=== PATIENT | female | born 1940 | race Caucasian/White ===

== ENCOUNTER 2018-04-21 10:47 | Inpatient (IN) ==
--- NOTE | 2018-04-21 13:16 | ED ---
HPI General Chief Complaint: Psychiatric Symptoms Stated Complaint: Alverto henry Time Seen by Provider: 04/21/18 12:55 Source: patient and family (sister) Mode of arrival: ambulatory Limitations: no limitations History of Present Illness HPI Narrative: 77-year-old female, with history of bipolar disorder, presents voluntarily to the emergency department for psychiatric evaluation. She says that she has not been able to sleep for the past month and is manic. Reports about 3 hours of sleep per night, but it is not enough. She says she has no energy. Also reports some visual hallucinations occasionally. Her sister states she has been irritable and has been pacing a lot. Patient reports feeling depressed and anxious. Denies suicidal or homicidal ideations. Denies auditory hallucinations. Has tried taking sleeping pills with no relief of symptoms. She does take lithium and her dose was decreased in December secondary to an increased lithium level. She has not had her lithium level rechecked since then. Says she is due for lithium level rechecked. No known aggravating or relieving factors. Symptoms are moderate in severity. Onset unknown. Duration chronic. Psychiatrist is Camille Winchester. Primary care provider is Dr. Salazar. Allergies to penicillin and sulfa. History of bipolar disorder and hypertension. Has no other medical complaints. Denies chest pain, shortness of breath, abdominal pain, change in urine or stool. Does have a stent in her bladder and says that sometimes it is painful. No other modifying factors or associated signs and symptoms. Related Data Home Medications Medication Instructions Recorded Confirmed levothyroxine 50 mcg PO DAILY 04/21/18 04/21/18 lithium carbonate 300 mg PO BID 04/21/18 04/21/18 simvastatin 20 mg PO DAILY 04/21/18 04/21/18 Allergies Allergy/AdvReac Type Severity Reaction Status Date / Time Penicillins Allergy Rash Verified 04/21/18 13:21 Sulfa (Sulfonamide AdvReac Gastrointestinal Verified 04/21/18 13:21 Antibiotics) Upset Review of Systems ROS: all other systems reviewed are negative [facility] Medical History Medical History Bipolar disorder (Acute) HTN (hypertension) (Acute) Hx of hysterectomy (Acute) Hyperlipemia (Acute) Neurogenic bladder (Acute) Thyroid disorder (Acute) Family History Family History Other Family history normal Social History Social History Substance History: No History of Abuse Smoking Status: Refused to answer How Often Do You Have a Drink Containing Alcohol: Never Recent Travel in [facility] within the Last 8 Weeks: No Recent Out of Country Travel within the Last 8 Weeks: No Exam Narrative Exam Narrative: GENERAL: Well-nourished, well-developed elderly, female patient, in no acute distress SKIN: Warm and dry. HEAD: Atraumatic. Normocephalic. EYES: Pupils equal and round. ENT: Mucosa pink and moist. NECK: Supple. Trachea midline. CARDIOVASCULAR: Regular rate and rhythm. No murmur appreciated. RESPIRATORY: No accessory muscle use. Clear to auscultation. Breath sounds equal bilaterally. GASTROINTESTINAL: Abdomen soft, non-tender, nondistended. Hepatic and splenic margins not palpable. Bowel sounds are active 4 quadrants. MUSCULOSKELETAL: No obvious deformities. No clubbing. No cyanosis. No edema. BACK: No CVA tenderness. NEUROLOGICAL: Awake and alert. Oriented 3. No obvious cranial nerve deficits. Motor grossly within normal limits. Normal speech. Moves all extremities. 5/5 strength to all extremities. PSYCHIATRIC: No delusional thought processes. No hallucinations. Course Initial Documented Vital Signs Temperature 98.2 F 04/21/18 11:43 Pulse Rate 77 04/21/18 11:43 Respiratory Rate 16 04/21/18 11:43 Blood Pressure 138/77 04/21/18 11:43 Pulse Oximetry 97 04/21/18 11:43 Last Documented Vital Signs Temperature 97.2 F L 04/22/18 17:34 Pulse Rate 80 04/22/18 17:34 Respiratory Rate 16 04/22/18 17:34 Blood Pressure 167/86 H 04/22/18 17:34 Pulse Oximetry 95 04/22/18 17:34 Medical Decision Making [facility] Narrative Medical decision making narrative: Patient presents voluntarily for psychiatric evaluation. Physical examination and vital signs are essentially unremarkable. Patient has no medical complaints to report. Psych screen has been ordered. If the laboratory results are unremarkable, the patient will be medically cleared for psychiatric evaluation and disposition. Medical Screen Exam Complete: Yes Emergency Medical Condition: Yes Differential Diagnosis Differential Diagnosis: Bipolar disorder, insomnia, anxiety, depression, medical clearance for psychiatric evaluation Lab Data Result diagrams: 04/21/18 13:46 04/21/18 13:46 Lab Results 04/21/18 04/21/18 04/21/18 Range/Units 13:46 13:46 13:48 WBC 10.4 (4.0-11.0) th/mm3 RBC 4.67 (4.00-5.30) mil/mm3 Hgb 14.3 (11.6-15.3) gm/dL Hct 43.4 (35.0-46.0) % MCV 92.8 (80.0-100.0) fL MCH 30.6 (27.0-34.0) pg MCHC 33.0 (32.0-36.0) % RDW 13.3 (11.6-17.2) % Plt Count 225 (150-450) th/mm3 MPV 7.9 (7.0-11.0) fL Neut % (Auto) 84.5 H (16.0-70.0) % Lymph % (Auto) 10.8 (9.0-44.0) % [place] % (Auto) 4.0 (0.0-8.0) % Eos % (Auto) 0.0 (0.0-4.0) % Baso % (Auto) 0.7 (0.0-2.0) % Neut # (Auto) 8.8 H (1.8-7.7) th/mm3 Lymph # (Auto) 1.1 (1.0-4.8) th/mm3 [place] # (Auto) 0.4 (0.0-0.9) th/mm3 Eos # (Auto) 0.0 (0.0-0.4) th/mm3 Baso # (Auto) 0.1 (0.0-0.2) th/mm3 WBC Differential . Differential Comment Auto diff final Sodium 141 (136-145) meq/L Potassium 4.8 (3.5-5.1) meq/L Chloride 110 H (98-107) meq/L Carbon Dioxide 24.9 (21.0-32.0) meq/L Anion Gap 6 (5-15) meq/L BUN 21 H (7-18) mg/dL Creatinine 0.97 (0.50-1.00) mg/dL Estimated GFR 56 L (>89) mL/min Random Glucose 123 H (74-106) mg/dL Hemoglobin A1c (4.3-6.0) % Calcium 9.7 (8.5-10.1) mg/dL Total Bilirubin 0.8 (0.2-1.0) mg/dL AST 38 H (15-37) U/L ALT 26 (10-53) U/L Alkaline Phosphatase 68 (45-117) U/L Total Protein 7.6 (6.4-8.2) g/dL Albumin 4.1 (3.4-5.0) g/dL Triglycerides (42-150) mg/dL Cholesterol (120-200) mg/dL LDL Cholesterol, Calc (0-99) mg/dL HDL Cholesterol (40.0-60.0) mg/dL Cholesterol/HDL Ratio Ratio TSH 1.710 (0.358-3.740) uIU/mL Urine Color (Yellw/Straw) Urine Clarity (Clear) Urine pH (5.0-8.5) Ur Specific [place] (1.002-1.035) Urine Protein (Neg-Trace) mg/dL Urine Glucose (UA) (Negative) mg/dL Urine Ketones (Negative) mg/dL Urine Occult Blood (Negative) Urine Nitrate (Negative) Urine Bilirubin (Negative) Urine Urobilinogen (Less than 2) mg/dL Ur Leukocyte Esterase (Negative) Urine RBC (0-3) /hpf Urine WBC (0-5) /hpf Ur Squamous Epith Cells (0-5) /hpf Urine Mucus (Occasional) /lpf Micro UA Comment Ur Microscopic Review Urine Culture Comments Urine Opiates Screen Neg (Neg) Ur Barbiturates Screen Neg (Neg) Ur Amphetamines Screen Neg (Neg) U Benzodiazepines Scrn Neg (Neg) [place] (0.5-1.5) meq/L Urine Cocaine Screen Neg (Neg) U Cannabinoids Screen Neg (Neg) Serum Alcohol Less than 3 (0-5) mg/dL 04/21/18 04/21/18 04/22/18 Range/Units 13:48 14:59 06:31 WBC (4.0-11.0) th/mm3 RBC (4.00-5.30) mil/mm3 Hgb (11.6-15.3) gm/dL Hct (35.0-46.0) % MCV (80.0-100.0) fL MCH (27.0-34.0) pg MCHC (32.0-36.0) % RDW (11.6-17.2) % Plt Count (150-450) th/mm3 MPV (7.0-11.0) fL Neut % (Auto) (16.0-70.0) % Lymph % (Auto) (9.0-44.0) % [place] % (Auto) (0.0-8.0) % Eos % (Auto) (0.0-4.0) % Baso % (Auto) (0.0-2.0) % Neut # (Auto) (1.8-7.7) th/mm3 Lymph # (Auto) (1.0-4.8) th/mm3 [place] # (Auto) (0.0-0.9) th/mm3 Eos # (Auto) (0.0-0.4) th/mm3 Baso # (Auto) (0.0-0.2) th/mm3 WBC Differential Differential Comment Sodium (136-145) meq/L Potassium (3.5-5.1) meq/L Chloride (98-107) meq/L Carbon Dioxide (21.0-32.0) meq/L Anion Gap (5-15) meq/L BUN (7-18) mg/dL Creatinine (0.50-1.00) mg/dL Estimated GFR (>89) mL/min Random Glucose (74-106) mg/dL Hemoglobin A1c 5.6 (4.3-6.0) % Calcium (8.5-10.1) mg/dL Total Bilirubin (0.2-1.0) mg/dL AST (15-37) U/L ALT (10-53) U/L Alkaline Phosphatase (45-117) U/L Total Protein (6.4-8.2) g/dL Albumin (3.4-5.0) g/dL Triglycerides (42-150) mg/dL Cholesterol (120-200) mg/dL LDL Cholesterol, Calc (0-99) mg/dL HDL Cholesterol (40.0-60.0) mg/dL Cholesterol/HDL Ratio Ratio TSH (0.358-3.740) uIU/mL Urine Color Yellow (Yellw/Straw) Urine Clarity Clear (Clear) Urine pH 6.0 (5.0-8.5) Ur Specific [place] 1.009 (1.002-1.035) Urine Protein Negative (Neg-Trace) mg/dL Urine Glucose (UA) Negative (Negative) mg/dL Urine Ketones Negative (Negative) mg/dL Urine Occult Blood Negative (Negative) Urine Nitrate Negative (Negative) Urine Bilirubin Negative (Negative) Urine Urobilinogen Less than 2 (Less than 2) mg/dL Ur Leukocyte Esterase Negative (Negative) Urine RBC 1 (0-3) /hpf Urine WBC 1 (0-5) /hpf Ur Squamous Epith Cells <1 (0-5) /hpf Urine Mucus Few H (Occasional) /lpf Micro UA Comment Culture not ind Ur Microscopic Review Not Reportable Urine Culture Comments Culture not ind Urine Opiates Screen (Neg) Ur Barbiturates Screen (Neg) Ur Amphetamines Screen (Neg) U Benzodiazepines Scrn (Neg) [place] 0.8 (0.5-1.5) meq/L Urine Cocaine Screen (Neg) U Cannabinoids Screen (Neg) Serum Alcohol (0-5) mg/dL 04/22/18 Range/Units 06:31 WBC (4.0-11.0) th/mm3 RBC (4.00-5.30) mil/mm3 Hgb (11.6-15.3) gm/dL Hct (35.0-46.0) % MCV (80.0-100.0) fL MCH (27.0-34.0) pg MCHC (32.0-36.0) % RDW (11.6-17.2) % Plt Count (150-450) th/mm3 MPV (7.0-11.0) fL Neut % (Auto) (16.0-70.0) % Lymph % (Auto) (9.0-44.0) % [place] % (Auto) (0.0-8.0) % Eos % (Auto) (0.0-4.0) % Baso % (Auto) (0.0-2.0) % Neut # (Auto) (1.8-7.7) th/mm3 Lymph # (Auto) (1.0-4.8) th/mm3 [place] # (Auto) (0.0-0.9) th/mm3 Eos # (Auto) (0.0-0.4) th/mm3 Baso # (Auto) (0.0-0.2) th/mm3 WBC Differential Differential Comment Sodium (136-145) meq/L Potassium (3.5-5.1) meq/L Chloride (98-107) meq/L Carbon Dioxide (21.0-32.0) meq/L Anion Gap (5-15) meq/L BUN (7-18) mg/dL Creatinine (0.50-1.00) mg/dL Estimated GFR (>89) mL/min Random Glucose (74-106) mg/dL Hemoglobin A1c (4.3-6.0) % Calcium (8.5-10.1) mg/dL Total Bilirubin (0.2-1.0) mg/dL AST (15-37) U/L ALT (10-53) U/L Alkaline Phosphatase (45-117) U/L Total Protein (6.4-8.2) g/dL Albumin (3.4-5.0) g/dL Triglycerides 89 (42-150) mg/dL Cholesterol 125 (120-200) mg/dL LDL Cholesterol, Calc 59 (0-99) mg/dL HDL Cholesterol 48.1 (40.0-60.0) mg/dL Cholesterol/HDL Ratio 2.59 Ratio TSH (0.358-3.740) uIU/mL Urine Color (Yellw/Straw) Urine Clarity (Clear) Urine pH (5.0-8.5) Ur Specific [place] (1.002-1.035) Urine Protein (Neg-Trace) mg/dL Urine Glucose (UA) (Negative) mg/dL Urine Ketones (Negative) mg/dL Urine Occult Blood (Negative) Urine Nitrate (Negative) Urine Bilirubin (Negative) Urine Urobilinogen (Less than 2) mg/dL Ur Leukocyte Esterase (Negative) Urine RBC (0-3) /hpf Urine WBC (0-5) /hpf Ur Squamous Epith Cells (0-5) /hpf Urine Mucus (Occasional) /lpf Micro UA Comment Ur Microscopic Review Urine Culture Comments Urine Opiates Screen (Neg) Ur Barbiturates Screen (Neg) Ur Amphetamines Screen (Neg) U Benzodiazepines Scrn (Neg) [place] (0.5-1.5) meq/L Urine Cocaine Screen (Neg) U Cannabinoids Screen (Neg) Serum Alcohol (0-5) mg/dL Discharge Plan Discharge Disposition Patient Disposition: 30 Still Patient Discharge Condition Condition: Stable Discharge Details Diagnosis: Encounter for psychiatric assessment Physicians Team ED Provider: Shalini Hill ED Midlevel Provider: Lana Kruger Primary Care Provider: Primary Care Physici,No Attending Provider: Bj Bowers Other Providers: Kinsey Ziegler Status ED Status: Left Department Discharge Information Discharge Date/Time: 04/21/18 18:36
[2018-04-21 14:03] LABS: Baso # (Auto) 0.1 th/mm3 (0.0-0.2); Baso % (Auto) 0.7 % (0.0-2.0); Hematocrit 43.4 % (35.0-46.0); Hemoglobin 14.3 gm/dL (11.6-15.3); Lymph # (Auto) 1.1 th/mm3 (1.0-4.8); Lymph % (Auto) 10.8 % (9.0-44.0); Mean Corpuscular Hemoglobin 30.6 pg (27.0-34.0); Mean Corpuscular Volume 92.8 fL (80.0-100.0); Mean Platelet Volume 7.9 fL (7.0-11.0); Mono # (Auto) 0.4 th/mm3 (0.0-0.9); Neut # (Auto) 8.8 th/mm3 (1.8-7.7); Neut % (Auto) 84.5 % (16.0-70.0); Platelet Count 225 th/mm3 (150-450); Red Blood Count 4.67 mil/mm3 (4.00-5.30); Red Cell Distribution Width 13.3 % (11.6-17.2); White Blood Count 10.4 th/mm3 (4.0-11.0)
[2018-04-21 14:14] LABS: Bilirubin,Urine Negative (Negative); Clarity,Urine Clear (Clear); Color,Urine Yellow (Yellw/Straw); Glucose,Urine (UA) Negative (Negative); Leukocyte Esterase,Urine Negative (Negative); Mucus,Urine Few /lpf (Occasional); Nitrite,Urine Negative (Negative); Specific Gravity,Urine 1.009 (1.002-1.035); Squamous Epithelial Cell,Urine <1 /hpf (0-5)
[2018-04-21 14:18] LABS: Amphetamine Screen,Urine Neg (Neg); Barbiturate Screen,Urine Neg (Neg); Cannabinoid Screen,Urine Neg (Neg); Cocaine Screen,Urine Neg (Neg)
[2018-04-21 14:21] LABS: Opiate Screen,Urine Neg (Neg)
[2018-04-21 14:26] LABS: Albumin 4.1 g/dL (3.4-5.0); Anion Gap 6 meq/L (5-15); Aspartate Aminotransferase 38 U/L (15-37); Blood Urea Nitrogen 21 mg/dL (7-18); Calcium 9.7 mg/dL (8.5-10.1); Carbon Dioxide 24.9 meq/L (21.0-32.0); Chloride 110 meq/L (98-107); Glomerular Filtration Rate 56 mL/min (>89); Glucose,Random 123 mg/dL (74-106); Potassium 4.8 meq/L (3.5-5.1); Sodium 141 meq/L (136-145)
[2018-04-21 14:36] LABS: Alanine Aminotransferase 26 U/L (10-53); Alkaline Phosphatase 68 U/L (45-117); Total Protein 7.6 g/dL (6.4-8.2)
[2018-04-21] MEDS ORDERED: Acetaminophen 325 MG Tablet PO ONE (17:04)
[2018-04-21] MEDS ORDERED: Aluminum/Magnesium/Simethacone Susp 30 ML UDC PO PRN (19:11)
[2018-04-22 08:13] LABS: Chol/HDL Ratio 2.59 Ratio; HDL Cholesterol 48.1 mg/dL (40.0-60.0)
[2018-04-22] MEDS ORDERED: Senna/Docusate Sodium 8.6/50 MG Tablet PO PRN (08:15)
[2018-04-22] MEDS: Polyethylene Glycol 3350 17 GM Packet PO SCH (08:31)
[2018-04-22] MEDS: Acetaminophen 325 MG Tablet PO PRN ×2 (12:08→16:25)
[2018-04-22 12:27] LABS: Hemoglobin A1c 5.6 % (4.3-6.0)
--- NOTE | 2018-04-22 13:02 | P.HPPSY ---
Provisional Diagnosis Admission Date: April 21, 2018 18:10 Competence Certification of Person's Competence To Provide Express and Informed Consent I have personally examined Cheryl Parikh, a person being served at [facility] on, April 22, 2018 1250. Express and informed consent means consent voluntarily given in writing, by a competent person, after sufficient explanation and disclosure of the subject matter involved to enable the person to make a knowing and willful decision without any element of force, fraud, deceit, duress, or other form of constraint or coercion. This person is 18 years of age or older, is not now known to be incompetent to consent to treatment with a guardian advocate, and does not have a health care surrogate or proxy currently making medical treatment decisions. I have found this person to be one of the following: [] Competent to provide express and informed consent, as defined above, for voluntary admission to this facility and is competent to provide express and informed consent for treatment. He/she has the consistent capacity to make well reasoned, willful, and knowing decisions concerning his or her medical or mental health treatment. The person fully and consistently understands the purpose of the admission for examination/placement and is fully capable of personally exercising all rights assured [place] [] Incompetent to provide express and informed consent to voluntary admission, and this is incompetent to provide express and informed consent to treatment. The person must be transferred to involuntary status and a petition for a guardian advocate filed with the Circuit Court. [X] Refusing to provide express and informed consent to voluntary admission but is competent to provide express and informed consent for treatment. The person must be discharged or transferred to involuntary status. Form shall be completed within 24 hours of a person's arrival at the receiving facility and filed in the clinical record of each person: 1. Admitted on a voluntary basis 2. Permitted to provide express and informed consent to his/her own treatment 3. Allowed to transfer from involuntary to voluntary status 4. Prior to permitting a person to consent to his or her own treatment after having been previously found incompetent to consent to treatment. History of Present Illness Capacity: Has capacity Chief Complaint: "bipolar" History of Present Illness: Patient is a 77-year-old female with an extensive history of bipolar disorder. Patient is admitted to the psychiatric unit for what she believes is symptoms of елена. This summer her lithium level was elevated at 1.4 and her outpatient psychiatrist lowered it to 600 mg from 900 mg. Since then, patient says she has had insomnia. However, she denies excess energy or goal directed activity. There is no euphoria or irritability however, there is pressured speech, trouble concentrating and mild confusion with pronounced anxiety. Tony level was done here in admission and is at 0.9. She was started before this interview on 300 mg p.o. twice daily. Patient says she was started on antihypertensive recently. However, she says this was after her insomnia and other symptoms began. She denies suicidal or homicidal ideation intent or plan. No psychosis noted. Past psych: Patient has failed trazodone and Seroquel in the past. She has been on lithium for over 20 years. She is unsure she is had other admissions Past medical: Thyroid disorder, high cholesterol, hypertension Past Social: Patient is a , Alevism, she denies any alcohol or substance use. She is retired - Inpatient Certification I certify that the inpatient services were ordered in accordance with Medicare regulations governing the order. This includes certification that hospital inpatient services are reasonable and necessary and in the case of services not specified as inpatient-only under 42 CFR 419.22(n), that they are appropriately provided as inpatient services in accordance to with the 2-midnight benchmark under 43 CFR 412.3(e) I certify that inpatient psychiatric hospital services are medically necessary. Evaluation and treatment and/or diagnostic testing are expected to improve the patient's condition. The patient needs on a daily basis, active treatment furnished directly by or requiring the supervision of inpatient psychiatric facility personnel. Review of Systems All other systems reviewed negative except as stated in HPI PMFSH - History History Provided By: Patient, Medical Record - Medical History Medical History: Medical History (Last Updated 04/22/18 @ 12:59 by Carl Can DO) HTN (hypertension) Thyroid disorder - Social History I have reviewed the patient's Social History: Yes - Tobacco History Second Hand Smoke Exposure: No Smoking Status: Refused to answer - Alcohol History How Often Do You Have a Drink Containing Alcohol: Unable to Obtain - Substance Use History Substance History: No History of Abuse - Travel History Recent Travel in the [place] Within the Last 8 Weeks: No Recent Travel Out of the Country Within the Last 8 Weeks: No - Immunization History Tetanus Immunization: Unsure Medications and Allergies Active Medications: Active Medications Acetaminophen (Tylenol) 650 mg PO Q4H PRN PRN Reason: Pain 1-5 or Temp >101F Last Admin: 04/22/18 12:08 Dose: 650 mg Al Hydrox/Mg Hydrox/Simethicone (Mag-Al Plus Susp Liq) 30 ml PO Q6H PRN PRN Reason: DYSPEPSIA Al Hydroxide/Mg Hydroxide (Milk Of Magnesia Liq) 30 ml PO Q12H PRN PRN Reason: Mild Constipation Diphenhydramine HCl (Benadryl) 50 mg PO Q6H PRN PRN Reason: For mild anxiety and/or EPS Diphenhydramine HCl (Benadryl Inj) 50 mg IM Q6H PRN PRN Reason: For mild anxiety and/or EPS Hydroxyzine HCl (Atarax) 50 mg PO Q6H PRN PRN Reason: ANXIETY Tony Carbonate (Tony Carbonate) 300 mg PO BID [facility] Last Admin: 04/22/18 08:31 Dose: 300 mg Mirtazapine (Remeron) 15 mg PO [facility] Polyethylene Glycol (Miralax) 17 gm PO DAILY [facility] Last Admin: 04/22/18 08:31 Dose: 17 gm Senna/Docusate Sodium (Anisa-Colace) 1 tab PO DAILY PRN PRN Reason: CONSTIPATION Allergies Allergy/AdvReac Type Severity Reaction Status Date / Time Penicillins Allergy Rash Verified 04/21/18 13:21 Sulfa (Sulfonamide AdvReac Gastrointestinal Verified 04/21/18 13:21 Antibiotics) Upset Home Medications Medication Instructions Recorded Confirmed Type levothyroxine 50 mcg PO DAILY 04/21/18 04/21/18 History lithium carbonate 300 mg PO BID 04/21/18 04/21/18 History simvastatin 20 mg PO DAILY 04/21/18 04/21/18 History Results - Labs CBC & Chem 7: 04/21/18 13:46 04/21/18 13:46 Labs: Laboratory Results - last 24 hr 04/21/18 04/21/18 04/21/18 13:46 13:46 13:48 WBC 10.4 RBC 4.67 Hgb 14.3 Hct 43.4 MCV 92.8 MCH 30.6 MCHC 33.0 RDW 13.3 Plt Count 225 MPV 7.9 Neut % (Auto) 84.5 H Lymph % (Auto) 10.8 [place] % (Auto) 4.0 Eos % (Auto) 0.0 Baso % (Auto) 0.7 Neut # (Auto) 8.8 H Lymph # (Auto) 1.1 [place] # (Auto) 0.4 Eos # (Auto) 0.0 Baso # (Auto) 0.1 WBC Differential . Differential Comment Auto diff final Sodium 141 Potassium 4.8 Chloride 110 H Carbon Dioxide 24.9 Anion Gap 6 BUN 21 H Creatinine 0.97 Estimated GFR 56 L Random Glucose 123 H Calcium 9.7 Total Bilirubin 0.8 AST 38 H ALT 26 Alkaline Phosphatase 68 Total Protein 7.6 Albumin 4.1 Triglycerides Cholesterol LDL Cholesterol, Calc HDL Cholesterol Cholesterol/HDL Ratio TSH 1.710 Urine Color Urine Clarity Urine pH Ur Specific [place] Urine Protein Urine Glucose (UA) Urine Ketones Urine Occult Blood Urine Nitrate Urine Bilirubin Urine Urobilinogen Ur Leukocyte Esterase Urine RBC Urine WBC Ur Squamous Epith Cells Urine Mucus Micro UA Comment Ur Microscopic Review Urine Culture Comments Urine Opiates Screen Neg Ur Barbiturates Screen Neg Ur Amphetamines Screen Neg U Benzodiazepines Scrn Neg [place] Urine Cocaine Screen Neg U Cannabinoids Screen Neg Serum Alcohol Less than 3 04/21/18 04/21/18 04/22/18 13:48 14:59 06:31 WBC RBC Hgb Hct MCV MCH MCHC RDW Plt Count MPV Neut % (Auto) Lymph % (Auto) [place] % (Auto) Eos % (Auto) Baso % (Auto) Neut # (Auto) Lymph # (Auto) [place] # (Auto) Eos # (Auto) Baso # (Auto) WBC Differential Differential Comment Sodium Potassium Chloride Carbon Dioxide Anion Gap BUN Creatinine Estimated GFR Random Glucose Calcium Total Bilirubin AST ALT Alkaline Phosphatase Total Protein Albumin Triglycerides 89 Cholesterol 125 LDL Cholesterol, Calc 59 HDL Cholesterol 48.1 Cholesterol/HDL Ratio 2.59 TSH Urine Color Yellow Urine Clarity Clear Urine pH 6.0 Ur Specific [place] 1.009 Urine Protein Negative Urine Glucose (UA) Negative Urine Ketones Negative Urine Occult Blood Negative Urine Nitrate Negative Urine Bilirubin Negative Urine Urobilinogen Less than 2 Ur Leukocyte Esterase Negative Urine RBC 1 Urine WBC 1 Ur Squamous Epith Cells <1 Urine Mucus Few H Micro UA Comment Culture not ind Ur Microscopic Review Not Reportable Urine Culture Comments Culture not ind Urine Opiates Screen Ur Barbiturates Screen Ur Amphetamines Screen U Benzodiazepines Scrn [place] 0.8 Urine Cocaine Screen U Cannabinoids Screen Serum Alcohol Exam Vital signs: Vital Signs 04/21/18 17:32 04/21/18 18:32 04/22/18 06:00 Temperature 97.8 F 98.4 F Pulse Rate 74 83 Respiratory Rate 18 16 16 Blood Pressure 160/81 H 158/88 H Pulse Oximetry 97 97 Intake & Output 04/21/18 04/22/18 04/22/18 18:59 06:59 18:59 Weight 69.4 kg Other: Weight On Admission 69.4 kg Mental Status Examination Appearance: Appropriate Consciousness: Alert Orientation: x4 Motor Activity: Normal gait Speech: Pressured, Rapid Language: Adequate Fund of Knowledge: Adequate Attention and Concentration: Adequate Memory: Impaired (midly) Mood: Anxious, Irritable Affect: Irritable, Anxious Thought Process & Associations: Circumstantial Thought Content: Appropriate Hallucination Type: None Delusion Type: None Suicidal Ideation: No Suicidal Plan: No Suicidal Intention: No Homicidal Ideation: No Homicidal Plan: No Homicidal Intention: No Insight: Poor Judgment: Poor Assessment and Plan - Assessment (1) Bipolar 1 disorder with moderate елена Code(s): F31.12 - Bipolar disorder, current episode manic without psychotic features, moderate Status: Acute (2) Insomnia disorder Code(s): G47.00 - Insomnia, unspecified Status: Acute - Plan Plan: Estimated LOS: [] days Given patient had an elevated lithium level we will not increase it at this time. We will obtain an EKG and then start an antipsychotic tomorrow. I suggest Saphris given it can be given at night and help with sleep. Justification for Continued Inpatient Stay: Patient would decompensate in a less restrictive setting
--- NOTE | 2018-04-22 13:18 | P.HPIM ---
History of Present Illness Service: [facility] Primary Care Physician: No Primary Care Physician Chief Complaint: katie History of Present Illness: This is a 77-year-old CF with a PMHx of Bipolar Disorder, HTN, Hypothyroidism, and HLD admitted by Psychiatric for mgmt of Katie and associated insomnia. Patient reports excess energy and racing thoughts. Patient reports that she hopes to get some rest while IP, reports sx previously stable on Wallace which she has been on for 20 yrs. Patient was started on Norvasc last wk for elevated BP. Patient denies suicidal or homicidal ideation intent or plan. - Diagnosis (1) Bipolar 1 disorder with moderate katie (2) Hypertension (3) Hyperlipemia (4) Hypothyroid Inpatient Certification: I certify that the inpatient services were ordered in accordance with Medicare regulations governing the order. This includes certification that hospital inpatient services are reasonable and necessary and in the case of services not specified as inpatient-only under 42 CFR 419.22(n), that they are appropriately provided as inpatient services in accordance to with the 2-midnight benchmark under 43 CFR 412.3(e) Review of Systems All other systems reviewed negative except as stated in HPI PMFSH - History History Provided By: Patient, Medical Record - Medical History Medical History: Medical History (Last Updated 04/22/18 @ 14:09 by Kinsey Ziegler MD) Bipolar disorder HTN (hypertension) Hx of hysterectomy Hyperlipemia Neurogenic bladder Thyroid disorder - Family History Family History: Family History (Last Updated 04/22/18 @ 14:09 by Kinsey Ziegler MD) Other Family history normal - Social History I have reviewed the patient's Social History: Yes - Tobacco History Smoking Status: Refused to answer - Alcohol History How Often Do You Have a Drink Containing Alcohol: Never - Substance Use History Substance History: No History of Abuse - Travel History Recent Travel in the [place] Within the Last 8 Weeks: No Recent Travel Out of the Country Within the Last 8 Weeks: No - Immunization History Tetanus Immunization: Unsure Medications and Allergies Active Medications: Active Medications Acetaminophen (Tylenol) 650 mg PO Q4H PRN PRN Reason: Pain 1-5 or Temp >101F Last Admin: 04/22/18 12:08 Dose: 650 mg Al Hydrox/Mg Hydrox/Simethicone (Mag-Al Plus Susp Liq) 30 ml PO Q6H PRN PRN Reason: DYSPEPSIA Al Hydroxide/Mg Hydroxide (Milk Of Magnesia Liq) 30 ml PO Q12H PRN PRN Reason: Mild Constipation Diphenhydramine HCl (Benadryl) 50 mg PO Q6H PRN PRN Reason: For mild anxiety and/or EPS Diphenhydramine HCl (Benadryl Inj) 50 mg IM Q6H PRN PRN Reason: For mild anxiety and/or EPS Hydroxyzine HCl (Atarax) 50 mg PO Q6H PRN PRN Reason: ANXIETY Wallace Carbonate (Wallace Carbonate) 300 mg PO BID [facility] Last Admin: 04/22/18 08:31 Dose: 300 mg Mirtazapine (Remeron) 15 mg PO HS [facility] Polyethylene Glycol (Miralax) 17 gm PO DAILY [facility] Last Admin: 04/22/18 08:31 Dose: 17 gm Senna/Docusate Sodium (Anisa-Colace) 1 tab PO DAILY PRN PRN Reason: CONSTIPATION Allergies Allergy/AdvReac Type Severity Reaction Status Date / Time Penicillins Allergy Rash Verified 04/21/18 13:21 Sulfa (Sulfonamide AdvReac Gastrointestinal Verified 04/21/18 13:21 Antibiotics) Upset Home Medications Medication Instructions Recorded Confirmed Type levothyroxine 50 mcg PO DAILY 04/21/18 04/21/18 History lithium carbonate 300 mg PO BID 04/21/18 04/21/18 History simvastatin 20 mg PO DAILY 04/21/18 04/21/18 History Exam Vital signs: Vital Signs 04/21/18 17:32 04/21/18 18:32 04/22/18 06:00 Temperature 97.8 F 98.4 F Pulse Rate 74 83 Respiratory Rate 18 16 16 Blood Pressure 160/81 H 158/88 H Pulse Oximetry 97 97 Intake & Output 04/21/18 04/22/18 04/22/18 18:59 06:59 18:59 Weight 69.4 kg Other: Weight On Admission 69.4 kg Narrative: GENERAL: thin, female, in NAD SKIN: Warm and dry. HEAD: Normocephalic. EYES: No scleral icterus. No injection or drainage. NECK: Supple, trachea midline. No JVD or lymphadenopathy. CARDIOVASCULAR: Regular rate and rhythm without murmurs, gallops, or rubs. RESPIRATORY: Breath sounds equal bilaterally. No accessory muscle use. GASTROINTESTINAL: Abdomen soft, non-tender, nondistended. MUSCULOSKELETAL: No cyanosis, or edema. BACK: Nontender without obvious deformity. No CVA tenderness. PSYCH/NEURO: AAOx3, pleasant, flight of ideas, hyperactive Results - Labs CBC & Chem 7: 04/21/18 13:46 04/21/18 13:46 Labs: Short CBC 04/21/18 Range/Units 13:46 WBC 10.4 (4.0-11.0) th/mm3 Hgb 14.3 (11.6-15.3) gm/dL Hct 43.4 (35.0-46.0) % Plt Count 225 (150-450) th/mm3 BMP 04/21/18 13:46 Sodium 141 Potassium 4.8 Chloride 110 H Carbon Dioxide 24.9 BUN 21 H Creatinine 0.97 Calcium 9.7 Liver Function 04/21/18 Range/Units 13:46 Total Bilirubin 0.8 (0.2-1.0) mg/dL AST 38 H (15-37) U/L ALT 26 (10-53) U/L Alkaline Phosphatase 68 (45-117) U/L Albumin 4.1 (3.4-5.0) g/dL Urine 04/21/18 Range/Units 13:48 Urine Color Yellow (Yellw/Straw) Urine Clarity Clear (Clear) Urine pH 6.0 (5.0-8.5) Ur Specific [place] 1.009 (1.002-1.035) Urine Protein Negative (Neg-Trace) mg/dL Urine Glucose (UA) Negative (Negative) mg/dL Caprini VTE Risk Assessment Caprini VTE Risk Assessment: No/Low Risk (score <= 1) Caprini Risk Assessment Model: Point Value = 1 Point Value = 2 Point Value = 3 Point Value = 5 Age 41-60 Minor surgery BMI > 25 kg/m2 Swollen legs Varicose veins or History of unexplained or recurrent spontaneous Oral contraceptives or hormone replacement Sepsis (< 1 month) Serious lung disease, including pneumonia (< 1 month) Abnormal pulmonary function Acute myocardial infarction Congestive heart failure (< 1 month) History of inflammatory bowel disease Medical patient at bed rest Age 61-74 Arthroscopic surgery Major open surgery (> 45 min) Laparoscopic surgery (> 45 min) Malignancy Confined to bed (> 72 hours) Immobilizing plaster cast Central venous access Age >= 75 History of VTE Family history of VTE Factor V Leiden Prothrombin [id number] Lupus anticoagulant Anticardiolipin antibodies Elevated serum homocysteine Heparin-induced thrombocytopenia Other congenital or acquired thrombophilia Stroke (< 1 month) Elective arthroplasty Hip, pelvis, or leg fracture Acute spinal cord injury (< 1 month) Prophylaxis Regimen: Total Risk Factor Score Risk Level Prophylaxis Regimen 0-1 Low Early ambulation 2 Moderate Order ONE of the following: *Sequential Compression Device (SCD) *Heparin 5000 units SQ BID 3-4 Higher Order ONE of the following medications: *Heparin 5000 units SQ TID *Enoxaparin/Lovenox 40 mg SQ daily (WT < 150 kg, CrCl > 30 mL/min) *Enoxaparin/Lovenox 30 mg SQ daily (WT < 150 kg, CrCl > 10-29 mL/min) *Enoxaparin/Lovenox 30 mg SQ BID (WT < 150 kg, CrCl > 30 mL/min) AND/OR *Sequential Compression Device (SCD) 5 or more Highest Order ONE of the following medications: *Heparin 5000 units SQ TID (Preferred with Epidurals) *Enoxaparin/Lovenox 40 mg SQ daily (WT < 150 kg, CrCl > 30 mL/min) *Enoxaparin/Lovenox 30 mg SQ daily (WT < 150 kg, CrCl > 10-29 mL/min) *Enoxaparin/Lovenox 30 mg SQ BID (WT < 150 kg, CrCl > 30 mL/min) AND *Sequential Compression Device (SCD) Assessment and Plan - Assessment (1) Bipolar 1 disorder with moderate katie Code(s): F31.12 - Bipolar disorder, current episode manic without psychotic features, moderate Status: Acute (2) Hypertension Code(s): I10 - Essential (primary) hypertension Status: Chronic (3) Hyperlipemia Code(s): E78.5 - Hyperlipidemia, unspecified Status: Chronic (4) Hypothyroid Code(s): E03.9 - Hypothyroidism, unspecified Status: Chronic - Plan This is a 77-year-old CF with a PMHx of Bipolar Disorder, HTN, Hypothyroidism, and HLD admitted by Psychiatric for mgmt of Katie and associated insomnia, we have been consulted for med [facility], HD#1 1. Bipolar disorder with associated insomnia Managed by psychiatry, appreciate assistance Continue lithium 300 mg p.o. twice daily, Atarax and Benadryl PRN EKG with normal sinus rhythm, heart rate 75, right bundle branch block, no other significant findings Patient denies symptoms of lithium toxicity Follow-up lithium level in a.m. 2. Hypertension Blood pressure elevated, will start home Amlodipine 5mg daily Patient is symptomatic, will continue to monitor 3. Hyperlipidemia LDL 59 on 04/21, continue home statin 4. Hypothyroidism TSH 1.710 on 04/21 Continue home levothyroxine 5. Health Maintenance Hemoglobin A1c 5.6% on 04/21 6. DVT prophylaxis: Ambulatory 7. Dispo: Monitor blood pressure and increase Norvasc dose as needed Code Status: full Discussed Condition With: patient, RN H&P: Quality - VTE Deep Vein Thrombosis/Pulmonary Embolism Present on Admission: No
[2018-04-22] MEDS: amLODIPine 5 MG Tablet PO SCH (14:06)
[2018-04-22] MEDS: Levothyroxine 50 MCG Tablet PO SCH (14:06)
[2018-04-22] MEDS: Ibuprofen 600 MG Tablet PO PRN (20:25)
[2018-04-22] MEDS: Mirtazapine 15 MG Tablet PO SCH (20:27)
[2018-04-23] MEDS: Ibuprofen 600 MG Tablet PO PRN ×3 (03:29→17:23)
[2018-04-23] MEDS: Levothyroxine 50 MCG Tablet PO SCH ×2 (06:38→06:47)
[2018-04-23 08:22] LABS: Baso # (Auto) 0.1 th/mm3 (0.0-0.2); Baso % (Auto) 0.7 % (0.0-2.0); Eos % (Auto) 0.1 % (0.0-4.0); Hematocrit 44.1 % (35.0-46.0); Hemoglobin 14.7 gm/dL (11.6-15.3); Lymph # (Auto) 1.1 th/mm3 (1.0-4.8); Lymph % (Auto) 13.9 % (9.0-44.0); Mean Corpuscular HGB Conc 33.2 % (32.0-36.0); Mean Corpuscular Hemoglobin 30.8 pg (27.0-34.0); Mean Corpuscular Volume 92.8 fL (80.0-100.0); Mean Platelet Volume 7.7 fL (7.0-11.0); Mono # (Auto) 0.4 th/mm3 (0.0-0.9); Mono % (Auto) 5.1 % (0.0-8.0); Neut # (Auto) 6.6 th/mm3 (1.8-7.7); Neut % (Auto) 80.2 % (16.0-70.0); Platelet Count 224 th/mm3 (150-450); Red Blood Count 4.75 mil/mm3 (4.00-5.30); Red Cell Distribution Width 13.3 % (11.6-17.2); White Blood Count 8.2 th/mm3 (4.0-11.0)
[2018-04-23] MEDS: amLODIPine 5 MG Tablet PO SCH (08:32)
[2018-04-23] MEDS: Polyethylene Glycol 3350 17 GM Packet PO SCH (08:33)
[2018-04-23 08:45] LABS: Alanine Aminotransferase 28 U/L (10-53); Albumin 4.3 g/dL (3.4-5.0); Anion Gap 7 meq/L (5-15); Aspartate Aminotransferase 21 U/L (15-37); Blood Urea Nitrogen 21 mg/dL (7-18); Calcium 9.8 mg/dL (8.5-10.1); Carbon Dioxide 24.7 meq/L (21.0-32.0); Chloride 110 meq/L (98-107); Glomerular Filtration Rate 49 mL/min (>89); Glucose,Random 123 mg/dL (74-106); Sodium 142 meq/L (136-145)
[2018-04-23 08:48] LABS: Alkaline Phosphatase 74 U/L (45-117)
--- NOTE | 2018-04-23 10:26 | P.PNPSY ---
Subjective Chief Complaint: "bipolar" Remarks: Patient initially admitted by Dr. Can's H&P reviewed. Patient chart reviewed. Patient seen today with RN and medical student Bettie. Patient is alert oriented elderly white female appears stated age. Complaining of increased mixed manic type behaviors with increased insomnia and mild irritability after her lithium dose was decreased from 900 mg daily to 600 mg daily little over 2 months ago. It appears her lithium level was up to about 1.9. [place] level drawn yesterday morning came back in 0.7. Patient is a little lives by herself has recently also lost her to pet dogs which is somewhat devastated her. She has no significant support group in town except some friends and her fellow [employer]es. She denies suicidality or homicidality. She is somewhat focused on her various medical problems and her anxiety related to her fascination with her blood levels. In any event at the present time patient does meet criteria for further inpatient stay on a voluntary basis. We will increase her total daily dose of lithium to 750 mg daily (300 mg a.m. for 50 mg at bedtime) recheck of blood level of lithium blood level on 04/26. We will discontinue her Tylenol continue her on Motrin for pain we will continue her on Atarax for anxiety and also to help with sleep we will also continue her Remeron at this time. Patient states she is also somewhat disenchanted with her present psychiatrist. Is asking that we help her find new psychiatrist in the community 1 of counselor work with her with that and her insurance panel Review of Systems All other systems reviewed negative except as stated in HPI Mental Status Examination Appearance: Appropriate Consciousness: Alert Orientation: x4 Motor Activity: Normal gait Speech: Pressured (Mildly), Rapid (Mildly) Language: Adequate Fund of Knowledge: Adequate Attention and Concentration: Adequate Memory: Impaired (midly) Mood: Anxious, Other (Euthymic to slightly irritable and mildly dysphoric) Affect: Other (Slight increased range and intensity) Thought Process & Associations: Circumstantial (Mildly) Thought Content: Appropriate Hallucination Type: None Delusion Type: None Suicidal Ideation: No Suicidal Plan: No Suicidal Intention: No Homicidal Ideation: No Homicidal Plan: No Homicidal Intention: No Insight: Fair Judgment: Poor Assessment and Plan - Assessment (1) Bipolar 1 disorder with moderate елена Code(s): F31.12 - Status: Acute (2) Insomnia disorder Code(s): G47.00 - Status: Acute - Plan Plan: Patient continues mildly manic and anxious. Though cooperative. She is willing to work with the adjustment of the medications including the adjustment of the lithium level. She medication adjustments above for now continue treatment Justification for Continued Inpatient Stay: At this time patient would decompensate a place to the lower level of care Discharge Planning: Return to her own home Request Healthcare Surrogate/Guardian Advocate?: No
--- NOTE | 2018-04-23 10:42 | P.TTN ---
- Patient Problems Problems: 1. Discharge planning 2. Medication compliance 3. Knowledge deficit 4. Lack of coping skills - Progress Toward Goals Provider Present: Dr. Doug Velazquez Provider Input: New pt, pt has not been assessed by this MD as of this writing. Psychiatric Counselors Present: Main Hawkins Jr., [facility] Psychiatric Therapist Input: New pt; pt has not been assessed by this therapist as of this writing. Group Spec/RT/OT/YU Present: Blair Delgado OT, GIGI Jean Group Spec/RT/OT/YU Input: New pt; pt has not attended groups as yet. - Discharge Plan New pt; following assessment, d/c planning will commence. - Documentation Teaching Recipient: Patient
--- NOTE | 2018-04-23 14:57 | ECG ---
Date Performed: 04/22/2018 Time Performed: 13:24:57 PTAGE: 77 years EKG: Sinus rhythm RIGHT BUNDLE BRANCH BLOCK LEFT ANTERIOR FASCICULAR BLOCK POSSIBLE SEPTAL MYOCARDIAL INFARCTION , OF INDETERMINATE AGE ABNORMAL ECG NO PREVIOUS TRACING DOCTOR: Estelle Mckenna Interpretating Date/Time 04/23/2018 14:56:09
--- NOTE | 2018-04-23 15:18 | P.PN ---
Subjective Interval history: Follow-up visit hypertension, bipolar disorder. Patient seen and examined today. Reports she is doing okay. Denies pain and discomfort. Denies SOB/ dyspnea. Denies chest pain, palpitations, headaches, dizziness. Denies fevers, chills, n/v/d. Denies dysuria. Physical Exam Vital signs: Vital Signs 04/22/18 17:34 04/22/18 22:57 04/23/18 04:00 Temperature 97.2 F L 98.4 F Pulse Rate 80 84 Respiratory Rate 16 16 18 Blood Pressure 167/86 H 150/78 H Pulse Oximetry 95 97 04/23/18 06:37 Temperature Pulse Rate Respiratory Rate 16 Blood Pressure Pulse Oximetry Intake & Output 04/22/18 04/23/18 04/23/18 18:59 06:59 18:59 Intake Total 1320 / 1320 Balance 1320 / 1320 Intake: Oral 1320 / 1320 Other: # Voids 5 Date of Last Bowel Movement 04/22/18 Narrative: GENERAL: thin, female, in NAD SKIN: Warm and dry. HEAD: Normocephalic. EYES: No scleral icterus. No injection or drainage. NECK: Supple, trachea midline. CARDIOVASCULAR: Regular rate and rhythm without murmurs, gallops, or rubs. RESPIRATORY: Breath sounds equal bilaterally. No accessory muscle use. GASTROINTESTINAL: Abdomen soft, non-tender, nondistended. MUSCULOSKELETAL: No cyanosis, or edema. BACK: Nontender without obvious deformity. No CVA tenderness. PSYCH/NEURO: AAOx3, pleasant, flight of ideas, hyperactive Results - Labs CBC & Chem 7: 04/23/18 07:34 04/23/18 07:34 Laboratory Results - last 24 hr 04/23/18 04/23/18 04/23/18 07:34 07:34 07:34 WBC 8.2 RBC 4.75 Hgb 14.7 Hct 44.1 MCV 92.8 MCH 30.8 MCHC 33.2 RDW 13.3 Plt Count 224 MPV 7.7 Neut % (Auto) 80.2 H Lymph % (Auto) 13.9 [place] % (Auto) 5.1 Eos % (Auto) 0.1 Baso % (Auto) 0.7 Neut # (Auto) 6.6 Lymph # (Auto) 1.1 [place] # (Auto) 0.4 Eos # (Auto) 0.0 Baso # (Auto) 0.1 WBC Differential . Differential Comment Auto diff final Sodium 142 Potassium 4.0 D Chloride 110 H Carbon Dioxide 24.7 Anion Gap 7 BUN 21 H Creatinine 1.08 H Estimated GFR 49 L Random Glucose 123 H Calcium 9.8 Total Bilirubin 0.7 AST 21 ALT 28 Alkaline Phosphatase 74 Total Protein 8.0 Albumin 4.3 [place] 0.7 Assessment and Plan - Assessment (1) Bipolar 1 disorder with moderate katie Code(s): F31.12 - Bipolar disorder, current episode manic without psychotic features, moderate Status: Acute (2) Hypertension Code(s): I10 - Essential (primary) hypertension Status: Chronic (3) Hyperlipemia Code(s): E78.5 - Hyperlipidemia, unspecified Status: Chronic (4) Hypothyroid Code(s): E03.9 - Hypothyroidism, unspecified Status: Chronic - Plan 77-year-old CF with a PMHx of Bipolar Disorder, HTN, Hypothyroidism, and HLD admitted by Psychiatric for mgmt of Katie and associated insomnia. Bipolar disorder -On lithium, managed by psychiatry team HTN, uncontrolled HLD -Started on amlodipine 5 mg daily, increase to 10 mg -Monitor BP trend. Adjust medications as necessary. -Continue pravastatin medication Hypothyroidism -Continue home medication levothyroxine DVT prop, ambulatory Code Status: Full code Discussed Condition With: Patient, nursing Discharge Planning: DC disposition by primary team
[2018-04-23] MEDS: Mirtazapine 15 MG Tablet PO SCH (21:32)
[2018-04-24] MEDS: Ibuprofen 600 MG Tablet PO PRN ×3 (01:12→20:27)
[2018-04-24] MEDS: Levothyroxine 50 MCG Tablet PO SCH ×2 (05:51→08:59)
[2018-04-24 07:46] LABS: Calcium 9.3 mg/dL (8.5-10.1); Carbon Dioxide 24.2 meq/L (21.0-32.0); Potassium 3.9 meq/L (3.5-5.1)
[2018-04-24] MEDS: Polyethylene Glycol 3350 17 GM Packet PO SCH (08:58)
[2018-04-24] MEDS: amLODIPine 5 MG Tablet PO SCH (08:59)
--- NOTE | 2018-04-24 14:58 | P.PNPSY ---
Subjective Chief Complaint: "bipolar" Remarks: Patient seen in her room with nurse Smita, medical student Bettie. Chart reviewed. Patient compliant medication. Patient alert irritable demanding quite somatic focusing on her "anxiety" in her "pain". Patient showing little ability to process the dosing mechanism for her lithium also. We did reiterate the process 2-3 times today. We will increase the dosage of the Motrin to every 6 hours from every 8 hours. We will continue the Atarax no change continue adjusting the lithium as ordered yesterday. Patient was not very satisfied with my responses are my persisting with the medication plan as we discussed yesterday Review of Systems All other systems reviewed negative except as stated in HPI Mental Status Examination Appearance: Appropriate Consciousness: Alert Orientation: x4 Motor Activity: Normal gait Speech: Pressured (Mildly), Rapid (Mildly) Language: Adequate Fund of Knowledge: Adequate Attention and Concentration: Adequate Memory: Impaired (midly) Mood: Anxious, Other (Euthymic to slightly irritable and mildly dysphoric) Affect: Other (Slight increased range and intensity) Thought Process & Associations: Circumstantial (Mildly) Thought Content: Appropriate Hallucination Type: None Delusion Type: None Suicidal Ideation: No Suicidal Plan: No Suicidal Intention: No Homicidal Ideation: No Homicidal Plan: No Homicidal Intention: No Insight: Fair Judgment: Poor Assessment and Plan - Assessment (1) Bipolar 1 disorder with moderate елена Code(s): F31.12 - Bipolar disorder, current episode manic without psychotic features, moderate Status: Acute (2) Insomnia disorder Code(s): G47.00 - Insomnia, unspecified Status: Acute - Plan Plan: Patient remained somewhat manic quite perseverative demanding and entitled. She medication adjustments above Justification for Continued Inpatient Stay: At this time patient would decompensate a place to a lower level of care Discharge Planning: To be determined probably home Request Healthcare Surrogate/Guardian Advocate?: No
--- NOTE | 2018-04-24 16:41 | P.PN ---
Subjective Interval history: Follow-up visit hypertension, bipolar disorder. Patient seen and examined today. Reports she is doing okay, BP better controlled. Indicates that she's always had a good blood pressure until recently. Denies any chest pain, shortness of breath. No abdominal discomfort although she did complain this morning to RN. Has some type of urological stent. Denies any dysuria. No fever, no chills. Physical Exam Vital signs: Vital Signs 04/23/18 17:36 04/24/18 06:24 04/24/18 10:12 Temperature 98.6 F 98.3 F Pulse Rate 90 78 76 Respiratory Rate 18 17 Blood Pressure 139/77 175/87 H 101/61 Pulse Oximetry 98 97 95 Intake & Output 04/23/18 04/24/18 04/24/18 18:59 06:59 18:59 Intake Total 1560 / 1560 460 / 460 Balance 1560 / 1560 460 / 460 Intake: Oral 1560 / 1560 [employer] Amount 360 / 360 Cell Saver Amount 100 / 100 Other: # Voids 4 2 Date of Last Bowel Movement 04/22/18 04/22/18 # Bowel Movements 1 Narrative: GENERAL: thin, female, in NAD SKIN: Warm and dry. HEAD: Normocephalic. EYES: No scleral icterus. No injection or drainage. NECK: Supple, trachea midline. CARDIOVASCULAR: Regular rate and rhythm without murmurs, gallops, or rubs. RESPIRATORY: Breath sounds equal bilaterally. No accessory muscle use. GASTROINTESTINAL: Abdomen soft, non-tender, nondistended. MUSCULOSKELETAL: No cyanosis, or edema. BACK: Nontender without obvious deformity. No CVA tenderness. PSYCH/NEURO: AAOx3, pleasant, flight of ideas, hyperactive Results - Labs CBC & Chem 7: 04/23/18 07:34 04/24/18 06:29 Laboratory Results - last 24 hr 04/24/18 06:29 Sodium 143 Potassium 3.9 Chloride 110 H Carbon Dioxide 24.2 Anion Gap 9 BUN 23 H Creatinine 1.01 H Estimated GFR 53 L Random Glucose 111 H Calcium 9.3 Assessment and Plan - Assessment (1) Bipolar 1 disorder with moderate katie Code(s): F31.12 - Bipolar disorder, current episode manic without psychotic features, moderate Status: Acute (2) Hypertension Code(s): I10 - Essential (primary) hypertension Status: Chronic (3) Hyperlipemia Code(s): E78.5 - Hyperlipidemia, unspecified Status: Chronic (4) Hypothyroid Code(s): E03.9 - Hypothyroidism, unspecified Status: Chronic - Plan 77-year-old CF with a PMHx of Bipolar Disorder, HTN, Hypothyroidism, and HLD admitted by Psychiatric for mgmt of Katie and associated insomnia. Bipolar disorder -On lithium, managed by psychiatry team HTN, uncontrolled-improving HLD -Continue with amlodipine 10 mg p.o. daily -Monitor BP trend. Adjust medications as necessary. -Continue pravastatin medication Hypothyroidism -Continue home medication levothyroxine Complain of occasional abdominal pain, has some type of stent in bladder. had UA done, no infection -continue to monitor. -Ibuprofen PRN DVT prop, ambulatory
[2018-04-24] MEDS: Mirtazapine 15 MG Tablet PO SCH (20:27)
[2018-04-25] MEDS: Ibuprofen 600 MG Tablet PO PRN ×3 (02:30→20:37)
[2018-04-25] MEDS: Levothyroxine 50 MCG Tablet PO SCH (05:11)
[2018-04-25] MEDS: amLODIPine 5 MG Tablet PO SCH (10:01)
[2018-04-25] MEDS: Polyethylene Glycol 3350 17 GM Packet PO SCH (10:02)
--- NOTE | 2018-04-25 12:18 | P.PNPSY ---
Subjective Chief Complaint: "bipolar" Remarks: Patient seen in day room with nurse Anay, chart reviewed, patient continues to focus on her somatic issues she states though that the Atarax does help but the duration is not satisfactory for her. Also with the use of the ibuprofen she complains still some vague chronic pain. I feel her expectations for the efficiency of these medications is unrealistic. Patient though also states she feels her mood is calming down with the adjustment of the lithium. We will be checking lithium blood level tomorrow morning Review of Systems All other systems reviewed negative except as stated in HPI Mental Status Examination Appearance: Appropriate Consciousness: Alert Orientation: x4 Motor Activity: Normal gait Speech: Pressured (Mildly), Rapid (Mildly) Language: Adequate Fund of Knowledge: Adequate Attention and Concentration: Adequate Memory: Impaired (midly) Mood: Anxious, Other (Euthymic to slightly irritable and mildly dysphoric) Affect: Other (Slight increased range and intensity) Thought Process & Associations: Circumstantial (Mildly) Thought Content: Appropriate Hallucination Type: None Delusion Type: None Suicidal Ideation: No Suicidal Plan: No Suicidal Intention: No Homicidal Ideation: No Homicidal Plan: No Homicidal Intention: No Insight: Fair Judgment: Poor Assessment and Plan - Assessment (1) Bipolar 1 disorder with moderate елена Code(s): F31.12 - Bipolar disorder, current episode manic without psychotic features, moderate Status: Acute (2) Insomnia disorder Code(s): G47.00 - Insomnia, unspecified Status: Acute - Plan Plan: Patient's елена is softening somewhat, though she continues with some vague med seeking and manipulation. For now continue treatment no change will check lithium level tomorrow morning Justification for Continued Inpatient Stay: At this time patient would decompensate a place to a lower level of care Discharge Planning: To be determined probably return home Request Healthcare Surrogate/Guardian Advocate?: No
--- NOTE | 2018-04-25 13:20 | P.PN ---
Subjective Interval history: Follow-up visit hypertension, bipolar disorder. Patient seen and examined today. Reports she is doing okay, BP better controlled. No chest pain, shortness of breath. Occasionally has lower abdomen pain, indicates she has an InterStim. This pain is chronic, feels that sometimes is exacerbated worst by her anxiety. At this time, she has no pain. No urinary symptoms. No fever, no chills. Physical Exam Vital signs: Vital Signs 04/24/18 18:21 04/24/18 21:27 04/25/18 03:30 Temperature 98.3 F Pulse Rate 84 Respiratory Rate 18 16 16 Blood Pressure 141/70 H Pulse Oximetry 95 04/25/18 06:23 04/25/18 12:14 Temperature 98.4 F Pulse Rate 77 Respiratory Rate 20 3 L Blood Pressure 125/61 Pulse Oximetry 98 Intake & Output 04/24/18 04/25/18 04/25/18 18:59 06:59 18:59 Intake Total 1919 / 192 192 / 192 360 / 360 Balance 1919 / 1919 192 / 192 360 / 360 Intake: Oral 1919 / 1920 1919 / 192 360 / 360 Other: # Voids 3 2 Date of Last Bowel Movement 04/22/18 Narrative: GENERAL: thin, female, in NAD SKIN: Warm and dry. HEAD: Normocephalic. EYES: No scleral icterus. No injection or drainage. NECK: Supple, trachea midline. CARDIOVASCULAR: Regular rate and rhythm without murmurs, gallops, or rubs. RESPIRATORY: Breath sounds equal bilaterally. No accessory muscle use. GASTROINTESTINAL: Abdomen soft, non-tender, nondistended. MUSCULOSKELETAL: No cyanosis, or edema. BACK: Nontender without obvious deformity. No CVA tenderness. PSYCH/NEURO: AAOx3, pleasant, hyperactive Results - Labs CBC & Chem 7: 04/23/18 07:34 04/24/18 06:29 Assessment and Plan - Assessment (1) Bipolar 1 disorder with moderate katie Code(s): F31.12 - Bipolar disorder, current episode manic without psychotic features, moderate Status: Acute (2) Hypertension Code(s): I10 - Essential (primary) hypertension Status: Chronic (3) Hyperlipemia Code(s): E78.5 - Hyperlipidemia, unspecified Status: Chronic (4) Hypothyroid Code(s): E03.9 - Hypothyroidism, unspecified Status: Chronic - Plan 77-year-old CF with a PMHx of Bipolar Disorder, HTN, Hypothyroidism, and HLD admitted by Psychiatric for mgmt of Katie and associated insomnia. Bipolar disorder -On lithium, managed by psychiatry team HTN, uncontrolled-improving HLD -Continue with amlodipine 10 mg p.o. daily -Monitor BP trend. Adjust medications as necessary. -Continue pravastatin medication Hypothyroidism -Continue home medication levothyroxine Complain of occasional abdominal pain,has Interstim. Hx of OAB. had UA done, no infection -continue to monitor. -Ibuprofen PRN BP stable, will sign off for now. Reconsult if needed DVT prop, ambulatory
--- NOTE | 2018-04-25 15:49 | P.TTN ---
- Patient Problems Problems: 1. Discharge planning 2. Medication compliance 3. Knowledge deficit 4. Lack of coping skills - Progress Toward Goals Provider Present: Dr. Patricio Bowers, Dr. Minal Connolly Provider Input: 04/25/18: Remain for further stabilization. New pt, pt has not been assessed by this MD as of this writing. Nurse(s) Present: Anamaria ARCHIBALDcard reader Counselors Present: Main Hawkins Jr., [facility], Other (Sarah Butt) Psychiatric Therapist Input: 04/25/18: Hyperverbal, Med compliant. Check lithium levels. New pt; pt has not been assessed by this therapist as of this writing. Group Spec/RT/OT/YU Present: ARNOL Gonzales, Blair Delgado OT Group Spec/RT/OT/YU Input: 04/25/18: Pt will be encouraged to attend and participate in the group activities. New pt; pt has not attended groups as yet. - Discharge Plan New pt; following assessment, d/c planning will commence. - Documentation Teaching Recipient: Patient
[2018-04-25] MEDS: Mirtazapine 15 MG Tablet PO SCH (20:36)
[2018-04-26] MEDS: Ibuprofen 600 MG Tablet PO PRN ×3 (02:40→17:34)
[2018-04-26 06:10] VITALS: BP 124/71; PULSE 76; TEMP 98.1; O2SAT 97
[2018-04-26] MEDS: Levothyroxine 50 MCG Tablet PO SCH ×2 (06:24→09:29)
[2018-04-26] MEDS: Polyethylene Glycol 3350 17 GM Packet PO SCH (09:27)
[2018-04-26] MEDS: amLODIPine 5 MG Tablet PO SCH (09:28)
--- NOTE | 2018-04-26 11:52 | P.DSPSY ---
Psychiatry Discharge Summary Inpatient Psychiatric care?: Yes Advance Directives: No Mental Health Advance Directive: No Health Care Proxy: No - Admission Admission Date: April 21, 2018 18:10 - Admission Diagnosis (1) Bipolar 1 disorder with moderate елена Code(s): F31.12 - Bipolar disorder, current episode manic without psychotic features, moderate Brief History: Patient is a 77-year-old female with an extensive history of bipolar disorder. Patient is admitted to the psychiatric unit for what she believes is symptoms of елена. This summer her lithium level was elevated at 1.4 and her outpatient psychiatrist lowered it to 600 mg from 900 mg. Since then, patient says she has had insomnia. However, she denies excess energy or goal directed activity. There is no euphoria or irritability however, there is pressured speech, trouble concentrating and mild confusion with pronounced anxiety. Bantam level was done here in admission and is at 0.9. She was started before this interview on 300 mg p.o. twice daily. Patient says she was started on antihypertensive recently. However, she says this was after her insomnia and other symptoms began. She denies suicidal or homicidal ideation intent or plan. No psychosis noted. Past psych: Patient has failed trazodone and Seroquel in the past. She has been on lithium for over 20 years. She is unsure she is had other admissions Past medical: Thyroid disorder, high cholesterol, hypertension Past Social: Patient is a , Taoism, she denies any alcohol or substance use. She is retired Tobacco Use In Past 30 Days: Yes How Often Do You Have a Drink Containing Alcohol: Never Hospital Course: Patient to be discharged today to self. Patient denies suicidality homicidality voice or visions. Patient did show some perseveration focusing on her anxiety and her pain. We did discuss and work with dosage of medications and frequency. She did accept my boundaries with some difficulty. However she does feel better that her елена is resolving with the increased lithium dose. She is tolerating that well. Bantam level drawn yesterday came back at 1.1. Thus patient will be discharged today with a 2-week prescription for her Atarax and her Motrin, and a one-month prescription for her other medications. Counselor to help arrange psychiatric follow-up in the community within 1-2 weeks. Patient to follow-up with her PCP. - Discharge Discharge Date: 04/26/18 - Discharge Diagnosis (1) Bipolar 1 disorder with moderate елена Diagnosis: Principal Code(s): F31.12 - Bipolar disorder, current episode manic without psychotic features, moderate Status: Acute Discharge Disposition: Home - Discharge Instructions Discharge Diet: Regular Diet Activities You Can Perform: Regular- No Restrictions - Discharge Time > 30 minutes Mental Status Examination Appearance: Appropriate Consciousness: Alert Orientation: x4 Motor Activity: Normal gait Speech: Pressured (Mildly), Rapid (Mildly) Language: Adequate Fund of Knowledge: Adequate Attention and Concentration: Adequate Memory: Impaired (midly) Mood: Anxious, Other (Euthymic to slightly irritable and mildly dysphoric) Affect: Other (Slight increased range and intensity) Thought Process & Associations: Circumstantial (Mildly) Thought Content: Appropriate Hallucination Type: None Delusion Type: None Suicidal Ideation: No Suicidal Plan: No Suicidal Intention: No Homicidal Ideation: No Homicidal Plan: No Homicidal Intention: No Insight: Fair Judgment: Poor Discharge/Advance Care Plan - Results Vital Signs: Last Vital Signs Temp 98.1 F 04/26/18 06:08 Pulse 76 04/26/18 06:08 Resp 16 04/26/18 06:08 BP 124/71 04/26/18 06:08 Pulse Ox 97 04/26/18 06:08 Lab Results: Abnormal Lab Results 04/26/18 05:27 Bantam 1.1 Laboratory Results Hemoglobin A1c 5.6 % (4.3-6.0) 04/22/18 06:31 Triglycerides 89 mg/dL (42-150) 04/22/18 06:31 Cholesterol 125 mg/dL (120-200) 04/22/18 06:31 LDL Cholesterol, Calc 59 mg/dL (0-99) 04/22/18 06:31 HDL Cholesterol 48.1 mg/dL (40.0-60.0) 04/22/18 06:31 TSH 1.710 uIU/mL (0.358-3.740) 04/21/18 13:46 Urine Culture Comments Culture not ind 04/21/18 13:48 Bantam 1.1 meq/L (0.5-1.5) 04/26/18 05:27 Summary of Procedures: None done Pending Results: None - Medications Number of antipsychotic medications at discharge: 0 - Discharge Care Plan Goals to Promote Your Health: * To prevent worsening of your condition and complications * To maintain your health at the optimal level Directions to Meet Your Goals: Take your medications as prescribed Follow your dietary instruction Follow activity as directed Keep your appointments as scheduled Take your immunizations and boosters as scheduled If your symptoms worsen call your PCP, if no PCP go to Urgent Care Center or Emergency Room For 13/02 questions related to your inpatient stay or results of tests pending at discharge, please contact Dr. Bj Bowers MD at Smoking is Dangerous to Your Health. Avoid second hand smoking
[2018-04-26 17:33] VITALS: RESP 3
== END 2018-04-26 17:40 | disposition home or self-care (01) ==
LOC: NEPD 10:47 → NEDA 18:10 → H250 18:24
PROVIDERS: ADMIT Psychiatry & Neurology Psychiatry; ATTEND Psychiatry & Neurology Psychiatry